=== PATIENT | female | born 1940 | race Two or more races ===

== ENCOUNTER 2024-08-19 19:13 | Emergency (ER) | payer OTHER ==
[~2024-08-19] VITALS: Ht 165.1 cm; Wt 48.1 kg
--- NOTE | 2024-08-19 21:33 | DVH ---
CLINICAL INDICATION: Trauma/fall TECHNIQUE: 1 radiographic views of the left forearm were obtained. Comparison: None FINDINGS/IMPRESSION: Postop changes of the distal radius are noted with a internal fixation device maintaining normal bony alignment. There are no prior studies for comparison The visualized joint space is well maintained. The alignment is anatomical. There is no radiopaque foreign body. HS:Y
--- NOTE | 2024-08-19 21:36 | DVH ---
CLINICAL INDICATION: Trauma/fall TECHNIQUE: 3 radiographic views of the left hand were obtained. Comparison: None FINDINGS/IMPRESSION: No prior studies for comparison. Internal fixation device over the left distal radius. The visualized joint space is well maintained. The alignment is anatomical. There is no radiopaque foreign body. HS:Y
--- NOTE | 2024-08-19 21:38 | DVH ---
CLINICAL INDICATION: Trauma/fall TECHNIQUE: 3 radiographic views of the left humerus were obtained. Comparison: None FINDINGS/IMPRESSION: Displaced fracture of the left humeral neck is noted. The distal shaft of the humerus is displaced m edially. The humeral head appears to be in appropriate alignment with the glenoid acromion. The visualized joint space is well maintained. The alignment is anatomical. There is no radiopaque foreign body. HS:Y
--- NOTE | 2024-08-19 21:39 | DVH ---
Indication: Trauma/fall Technique: 3 views left clavicle Comparison: None FINDINGS/IMPRESSION: There is a severely comminuted displaced fracture of the left humeral head/neck. There is approximat ne 3.7 cm cortical offset/ displacement of the humeral head from the neck. [id number] left AC joint arthrosis. Aortic atherosclerotic disease.
--- NOTE | 2024-08-19 22:11 | ED.PDOC ---
Musculoskeletal HPI Comments 84y F who presents to the ED for chief complaint of fall injury. Pt states she had ground level fall 2 days prior, landing on her L arm. Pt states she was exercising when she fell onto L shoulder and states she heard a pop. Pt denies hitting head and no noted loss of consciousness after fall. Pt states she started to notice swelling and increased bruising to the L arm and came to the ED for further evaluation. Pt in the ED is ax0x3 and noted pt and family are poor historians. Pt otherwise denies any other symptoms at this time. Chief Complaint: Upper Extremity Time Seen by MD: 22:09 Primary Care Provider: Dr. Sims Reviewed Notes: Nurses Notes, Medications, Allergies Allergies: Coded Allergies: NO KNOWN ALLERGIES (Unverified , 08/19/24) Information Source: Patient, Relative Mode of Arrival: Wheelchair Location: Left Extremity Location: Arm Timing: Days Prehospital treatment: None Severity: Moderate Able to Move Extremity: Yes Bear Weight: Fully Pain: Mild Hand Dominance: Right Mechanism: Blunt Trauma Circumstances: Fall Onset of Symptoms: After Trauma Symptoms: Swelling, Pain DVT Risk Factors: NONE Past Medical History PAST MEDICAL HISTORY: Denies Surgical History: Denies all surgeries DIRECTOR OF EVENT MANAGEMENT History: No Pertinent DIRECTOR OF EVENT MANAGEMENT History Family History Family History: Reviewed,noncontributory to illness, No family hx of Cancer, No family hx of DM, No family hx of Heart delmy, No family hx of HTN, No family hx ofKidney delmy, No family hx of Liver delmy, No family hx of Lung delmy, No family hx of Stroke Social History Smoker: Non-Smoker Alcohol: Denies ETOH Use Drugs: Denies Drug Use Lives In: Home Constitutional: denies: chills, diaphoresis, fatigue, fever, malaise, sweats, weakness, others EENTM: denies: blurred vision, double vision, ear bleeding, ear discharge, ear drainage, ear pain, ear ringing, eye pain, eye redness, hearing loss, mouth pain, mouth swelling, nasal discharge, nose bleeding, nose congestion, nose pain, photophobia, tearing, throat pain, throat swelling, voice changes, others Respiratory: denies: cough, hemoptysis, orthopnea, SOB at rest, shortness of breath, SOB with excertion, stridor, wheezing, others Cardiovascular: denies: chest pain, dizzy spells, diaphoresis, Dyspnea on exertion, edema, irregular heart beat, left arm pain, lightheadedness, palpitations, PND, syncope, others Gastrointestinal: denies: abdomen distended, abdominal pain, blood streaked bowels, constipated, diarrhea, dysphagia, difficulty swallowing, hematemesis, melena, nausea, poor appetite, poor fluid intake, rectal bleeding, rectal pain, vomiting, others Genitourinary: denies: abnormal vagina bleeding, burning, dyspareunia, dysuria, flank pain, frequency, hematuria, incontinence, pain, , vagina d ischarge, urgency, others Neurological: denies: dizziness, fainting, headache, left sided numbness, left sided weakness, numbness, paresthesia, pre-existing deficit, right sided numbness, right sided weakness, seizure, speech problems, tingling, tremors, weakness, others Musculoskeletal: reports: others (Patient complains of concerns of the entire left arm from the shoulder to the hand.); denies: back pain, gout, joint pain, joint swelling, muscle pain, muscle stiffness, neck pain Integumetry: reports: bruises (Left upper and lower arm); denies: change in color, change in hair/nails, dryness, laceration, lesions, lumps, rash, wounds, others Allergic/Immunocompromised: denies: Difficulty Healing, Frequent Infections, Hives, Itching, others Hematologic/Lymphatic: denies: anemia, blood clots, easy bleeding, easy bruising, swollen glands, others Endocrine: denies: excessive hunger, excessive sweating, excessive thirst, excessive urination, flushing, intolerance to cold, intolerance to heat, unexplained weight gain, unexplained weight loss, others Psychiatric: denies: anxiety, bipolar disorder, depression, hopeless, panic disorder, schizophrenia, sleepless, suicidal, others All Other Systems: Reviewed and Negative Physical Exam General Appearance: Mild Distress (Moderate distress due to anxiety rather than definitive pain concerns. Patient states as long as she does not move there is minimal pain.), Thin HEENT: Normal ENT Inspection, Pharynx Normal, TMs Normal Neck: Full Range of Motion, Non-Tender, Normal, Normal Inspection Respiratory: Chest Non-Tender, Lungs Clear, No Accessory Muscle Use, No Respiratory Distress, Normal Breath Sounds Cardiovascular: No Edema, No JVD, No Murmur, No Gallop, Normal Peripheral Pulses, Regular Rate/Rhythm Breast Exam: Deferred Gastrointestinal: No Organomegaly, Non Tender, No Pulsatile Mass, Normal Bowel Sounds, Soft Genitalia: Deferred Pelvic: Deferred Rectal: Deferred Extremities: Other (Patient reveals significant ecchymosis throughout the medial aspect of the left upper arm extending into the forearm. Patient presentation looks like a possible anterior dislocation. Significant reduced range of motion. Ecchymosis concerns extend into the hand and distal forearm as well. Distal neurovascularly intact.) Neurologic: Alert, No Motor Deficits, Normal Affect, Normal Mood, No Sensory Deficits Cerebellar Function: Normal Reflexes: Normal Skin: Dry, Normal Color, Warm Lymphatic: No Adenopathy Was a procedure done? Was a procedure done?: No Differential Diagnosis EXT Differential Diagnosis: Fracture, Sprain, Dislocation, Neurovascular injury, Arthritis X-Ray, Labs, Meds, VS Vital Signs Date Time Temp Pulse Resp B/P (MAP) Pulse Ox O2 Delivery O2 Flow Rate FiO2 08/19/24 19:25 97.4 90 18 96/62 (73) 96 97.4 [place] [address] Ph: [phone] DIAGNOSTIC IMAGING Diagnostic Imaging Report : [id number] Signed PATIENT: LIDIA FOX ACCT: [id number] UNIT: [id number] : 1940 LOC: ER ROOM / BED: / AGE / SEX: 84 / F ADM STATUS: REG ER SERVICE 41 ORDERING PHYSICIAN: REECE OLVERA PAC PROCEDURE(s): LHUM - L HUMERUS XRAY REASON: Trauma/fall ORDER NUMBER(s): [id number], ACCESSION NUMBER(s): [id number] CLINICAL INDICATION: Trauma/fall TECHNIQUE: 3 radiographic views of the left humerus were obtained. Comparison: None FINDINGS/IMPRESSION: Displaced fracture of the left humeral neck is noted. The distal shaft of the humerus is displaced medially. The humeral head appears to be in appropriate alignment with the glenoid acromion. The visualized joint space is well maintained. The alignment is anatomical. There is no radiopaque foreign body. HS:Y ATED BY: CIRILO CHURCHILL Jr., DO DICTATED DATE/TIME: 08/19/242135 SIGNED BY: CIRILO CHURCHILL Jr., DO SIGNED DATE/TIME: 08/19/242135 CC: ] [place] [address] Ph: [phone] DIAGNOSTIC IMAGING Diagnostic Imaging Report : [id number] Signed PATIENT: LIDIA FOX ACCT: [id number] UNIT: [id number] : 1940 LOC: ER ROOM / BED: / AGE / SEX: 84 / F ADM STATUS: REG ER SERVICE 41 ORDERING PHYSICIAN: REECE OLVERA PAC PROCEDURE(s): LHAN - L HAND 3V XRAY REASON: Trauma/fall ORDER NUMBER(s): [id number], ACCESSION NUMBER(s): [id number] CLINICAL INDICATION: Trauma/fall TECHNIQUE: 3 radiographic views of the left hand were obtained. Comparison: None FINDINGS/IMPRESSION: No prior studies for comparison. Internal fixation device over the left distal radius. The visualized joint space is well maintained. The alignment is anatomical. There is no radiopaque foreign body. HS:Y ATED BY: CIRILO CHURCHILL Jr., DO DICTATED DATE/TIME: 08/19/242133 SIGNED BY: CIRILO CHURCHILL Jr., DO SIGNED DATE/TIME: 08/19/242133 CC: [place] [address] Ph: [phone] DIAGNOSTIC IMAGING Diagnostic Imaging Report : [id number] Signed PATIENT: LIDIA FOX ACCT: [id number] UNIT: [id number] : 1940 LOC: ER ROOM / BED: / AGE / SEX: 84 / F ADM STATUS: REG ER SERVICE 41 ORDERING PHYSICIAN: REECE OLVERA PAC PROCEDURE(s): LCLAV - L CLAVICLE COMPLETE XRAY REASON: Trauma/fall ORDER NUMBER(s): [id number], ACCESSION NUMBER(s): [id number] Indication: Trauma/fall Technique: 3 views left clavicle Comparison: None FINDINGS/IMPRESSION: There is a severely comminuted displaced fracture of the left humeral head/neck. There is approximately 3.7 cm cortical offset/ displacement of the humeral head from the neck. [id number] left AC joint arthrosis. Aortic atherosclerotic disease. ATED BY: DARLINE EGAN MD DICTATED DATE/TIME: 08/19/242136 SIGNED BY: DARLINE EGAN MD SIGNED DATE/TIME: 08/19/242136 CC: X-Ray, Labs, Meds, VS Comment All studies performed the ED were evaluated by me personally. Imaging studies of the clavicle forearm and wrist and hand were unremarkable for any acute fractures. Humeral imaging studies confirmed a displaced fracture of the left humeral neck with the distal shaft of the humerus displays immediately. Humeral head appears to be in appropriate alignment with the glenoid acromion. Time of 1ST Reevaluation: 22:32 Reevaluation 1ST: Improved Consultation: PCP Patient Education/Counseling: Diagnosis, Treatment Family Education/Counseling: Diagnosis, Treatment Departure 1 Departure Time of Disposition: 22:33 Impression: Primary Impression: Fracture of neck of left humerus Disposition: HOME / SELF CARE / HOMELESS Condition: Stable Additional Instructions: Advised patient maintain the splint placement and sling until she follows up with her primary care provider or orthopedist. If patient is unable to follow up with the primary care, patient should call this facility at [phone] and asked for the orthopedic department run by Dr. Rubin. Patient should contact this facility in the next 2-3 days for that discussion. e-Prescriptions Hydrocodone-Acetaminophen (Hydrocodone Bitartrate/AC 5-325 mg) 1 Tab Tab 1 TAB PO Q6HP PRN, #20 TAB Prov: REECE OLVERA PAC 08/19/24 Ibuprofen Micronized (Ibuprofen) 600 Mg Tab 600 MG PO Q6HP PRN, #30 TAB Prov: REECE OLVERA PAC 08/19/24 Discharged With: Self, Relative Critical Care Note Critical Care Time?: No Stability Stability form required: No Heart Score Heart Score: Heart Score Response (Comments) Value History N/A 0 EKG N/A 0 Age N/A 0 Risk Factors N/A 0 Troponin N/A 0 Total 0 I personally scribed for REECE OLVERA PAC ([email or web address]) on 08/19/24 at 22:11. Elec tronically submitted by Milagros Lopez ([email or web address]). REECE OLVERA PAC Aug 19, 2024 22:11
[2024-08-19] MEDS ORDERED: IBUP1TAB5 PO (22:35)
[2024-08-19] MEDS ORDERED: HYDR-4902 PO (22:35)
[2024-08-19 23:57] VITALS: BP 100/72; PULSE 86; RESP 19; TEMP 98; O2SAT 98
== END 2024-08-20 00:09 | disposition home or self-care (01) ==
LOC: ER 19:13
DX: S42.212A Unspecified displaced fracture of surgical neck of left humerus, initial encounter for closed fracture (principal); W19.XXXA Unspecified fall, initial encounter; Y93.89 Activity, other specified; Y92.89 Other specified places as the place of occurrence of the external cause; Y99.8 Other external cause status
CPT/HCPCS: 29105; 73000; 73060; 73090; 73130